=== PATIENT | male | born 1995 ===

== ENCOUNTER 2018-01-20 22:47 | Observation (INO) | payer MEDICAID ==
[~2018-01-20] VITALS: Ht 177.8 cm; Wt 58.0 kg
[2018-01-20 23:34] LABS: AMPHETAMINE SCREEN, URINE Positive (Negative); BARBITURATE SCREEN, URINE Negative (Negative); BENZODIAZEPINE SCREEN, URINE Negative (Negative); CANNABINOID SCREEN, URINE Positive (Negative); COCAINE SCREEN, URINE Negative (Negative); METHADONE SCREEN, URINE Negative (Negative); OPIATE SCREEN, URINE Negative (Negative)
[2018-01-20 23:46] LABS: BASOPHILS # (AUTO) 0.03 x10^3/uL (0-0.1); BASOPHILS % (AUTO) 1 % (0-1); EOSINOPHILS # (AUTO) 0.07 x10^3/uL (0-0.4); EOSINOPHILS % (AUTO) 1 % (1-7); LYMPHOCYTES # (AUTO) 2.24 x10^3/uL (1-3.4); LYMPHOCYTES % (AUTO) 39 % (22-44); MD NO; MEAN CORPUSCULAR HGB CONC 34.6 g/dL (33.2-36.2); MEAN CORPUSCULAR VOLUME 92.3 fL (81-97); MEAN PLATELET VOLUME 7.3 fL (7.4-10.4); MONOCYTES # (AUTO) 0.34 x10^3/uL (0.2-0.8); MONOCYTES % (AUTO) 6 % (2-9); NEUTROPHILS # (AUTO) 3.06 x10^3/uL (1.8-6.8); NEUTROPHILS % (AUTO) 53 % (42-75); PLATELET COUNT 313 x10^3/uL (130-400); RED BLOOD COUNT 5.03 x10^6/uL (4.38-5.82); RED CELL DISTRIBUTION WIDTH 13.1 % (9.4-14.8)
[2018-01-20 23:58] LABS: ALANINE AMINOTRANSFERASE 20 U/L (12-78); ALBUMIN 4.2 g/dL (3.4-5.0); ANION GAP 6 mmol/L (5-15); CHLORIDE 107 mmol/L (98-107); SALICYLATE LEVEL 2.3 mg/dL (2.8-20.0)
[2018-01-21 00:01] LABS: ALKALINE PHOSPHATASE 81 U/L (45-117); BILIRUBIN,TOTAL 0.7 mg/dL (0.2-1.0); CREATININE 1.01 mg/dL (0.7-1.3); TOTAL PROTEIN 7.4 g/dL (6.4-8.2)
[2018-01-21 00:02] LABS: ACETAMINOPHEN < 2 mcg/mL (10-30)
[2018-01-21 04:07] VITALS: BP 96/60
[2018-01-21 07:43] VITALS: BP 108/82
== END 2018-01-21 16:22 ==
LOC: ED 23:59 → EDIP 01-21 01:40 → 2N 01-21 04:03
PROVIDERS: ADMIT Family Medicine; ATTEND Family Medicine
DX: R45.851 Suicidal ideations (principal); F32.3 Major depressive disorder, single episode, severe with psychotic features; F32.1 Major depressive disorder, single episode, moderate; F12.90 Cannabis use, unspecified, uncomplicated; F15.90 Other stimulant use, unspecified, uncomplicated; Z87.891 Personal history of nicotine dependence; Z91.5 Personal history of self-harm
CPT/HCPCS: 36415; 80053; 80307; 80329; 85025; 99285; G0378; G0480

== ENCOUNTER 2018-02-27 11:15 | Emergency (ER) | payer MEDICAID ==
[~2018-02-27] VITALS: Ht 180.3 cm; Wt 57.0 kg
[2018-02-27 12:27] VITALS: BP 120/82
== END 2018-02-27 12:50 | disposition home or self-care (01) ==
LOC: ED 12:30
DX: R05 Cough (principal); R04.0 Epistaxis
CPT/HCPCS: 71046; 99284

== ENCOUNTER 2020-02-27 13:30 | Emergency (ER) | payer MEDICAID ==
[~2020-02-27] VITALS: Ht 177.8 cm; Wt 60.0 kg
--- NOTE | 2020-02-27 15:03 | NUR ---
PT UP FOR ERMD RECHECK. PT RESTING IN BED, NO DISTRESS. WILL FOLLOW ORDERS.
--- NOTE | 2020-02-27 15:20 | NUR ---
PT OK FOR D/C PER ERMD. PT VERBALIZED UNDERSTADNING OF D/C INSTRUCTIONS.
[2020-02-27 15:21] VITALS: BP 110/81
== END 2020-02-27 15:23 | disposition home or self-care (01) ==
LOC: ED 15:00
DX: S02.2XXA Fracture of nasal bones, initial encounter for closed fracture (principal); F17.200 Nicotine dependence, unspecified, uncomplicated; X58.XXXA Exposure to other specified factors, initial encounter; Y93.89 Activity, other specified; Y92.89 Other specified places as the place of occurrence of the external cause; Y99.8 Other external cause status
CPT/HCPCS: 70486; 99284

== ENCOUNTER 2020-04-12 11:09 | Emergency (ER) | payer MEDICAID ==
[~2020-04-12] VITALS: Ht 180.3 cm; Wt 58.4 kg
--- NOTE | 2020-04-12 11:22 | NUR ---
PROJECT MANAGEMENT SPECIALIST NOTE: EKG TAKEN IN TRIAGE.
--- NOTE | 2020-04-12 12:18 | NUR ---
BREAK RN NOTE: PT RESTING ON GURNEY, A&O, RESPS EVEN AND UNLABORED. PT HAS NO COMPLAINT AT THIS TIME. AWAITING LABWORK AND DISPO AT THIS TIME.
[2020-04-12 12:19] LABS: BASOPHILS % (AUTO) 0 % (0-1); EOSINOPHILS % (AUTO) 1 % (1-7); LYMPHOCYTES % (AUTO) 22 % (22-44); MEAN CORPUSCULAR HEMOGLOBIN 30.9 pg (27.5-34.5); MEAN CORPUSCULAR HGB CONC 34.3 g/dL (33.2-36.2); MONOCYTES % (AUTO) 6 % (2-9); NEUTROPHILS % (AUTO) 72 % (42-75); PLATELET COUNT 315 x10^3/uL (130-400); RED BLOOD COUNT 5.91 x10^6/uL (4.38-5.82); RED CELL DISTRIBUTION WIDTH 13.2 % (9.4-14.8)
[2020-04-12 12:22] LABS: MD NO
[2020-04-12 12:23] LABS: ALBUMIN 4.8 g/dL (3.4-5.0); ANION GAP 7 mmol/L (5-15); CHLORIDE 103 mmol/L (98-107)
[2020-04-12 12:26] LABS: CREATININE 1.25 mg/dL (0.7-1.3)
--- NOTE | 2020-04-12 12:55 | NUR ---
Patient given discharge instructions and they have confirmed that they understand the instructions. Patient ambulatory with steady gait.
[2020-04-12 12:56] VITALS: BP 104/70
== END 2020-04-12 12:57 | disposition home or self-care (01) ==
LOC: ED 11:30
DX: F15.10 Other stimulant abuse, uncomplicated (principal); R42 Dizziness and giddiness; E87.1 Hypo-osmolality and hyponatremia; E87.5 Hyperkalemia; R53.1 Weakness; F17.210 Nicotine dependence, cigarettes, uncomplicated; Z72.9 Problem related to lifestyle, unspecified
CPT/HCPCS: 36415; 80048; 82040; 85025; 93005; 99284; 99406